=== PATIENT | male | born 1985 | race African-American/Black ===

== ENCOUNTER 2019-11-02 12:55 | Emergency (ER) | payer OTHER ==
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
[2019-11-02] MEDS ORDERED: KETOROLAC TROMETHAMINE 60 MG/2 ML SDV IM ONE (14:11)
[2019-11-02] MEDS ORDERED: IBUPROFEN 800 MG TABLET PO ONE (14:13)
[2019-11-02 14:22] VITALS: BP 135/83
--- NOTE | 2019-11-02 22:47 | EKG REPORT ---
SEVERITY:- NORMAL ECG - SINUS RHYTHM : Confirmed by: Deanne Romero 02-Nov-2019 22:46:36
== END 2019-11-02 14:22 | disposition home or self-care (01) ==
LOC: ER 12:55
DX: S20.212A Contusion of left front wall of thorax, initial encounter (principal); M79.18 Myalgia, other site; V49.9XXA Car occupant (driver) (passenger) injured in unspecified traffic accident, initial encounter; I10 Essential (primary) hypertension
CPT/HCPCS: 71046; 93005; 93010; 99283